=== PATIENT | male | born 1985 | race Two or more races ===

== ENCOUNTER 2025-01-03 12:13 | Emergency (ER) | payer OTHER ==
[~2025-01-03] VITALS: Ht 177.8 cm; Wt 111.1 kg
[2025-01-03 12:22] VITALS: BP 146/94; O2SAT 97
[2025-01-03] MEDS ORDERED: KETOROLAC TROMETHAMINE 30 MG VIAL IV ONE (12:45)
[2025-01-03 12:55] LABS: BASO % 0.2 % (0.1-1.2); EOS # 0.09 (0.04-0.54); EOS % 0.7 % (0.7-7.0); LYMPH # 1.62 (1.18-3.74); LYMPH % 13.3 % (19.3-53.1); MEAN PLATELET VOLUME 9.70 fl (9.4-12.4); MONO # 0.80 (0.24-0.82); MONO % 6.6 % (4.7-12.5); NEUT # 9.58 (1.56-6.13); NEUT % 78.8 % (34.0-71.1); RED CELL DISTRIBUTION WIDTH 13.0 % (11.6-14.4)
[2025-01-03 13:26] LABS: BUN CREA RATIO 11.0 (7.0-25.0); CREATININE SERUM 0.8 mg/dL (0.70-1.30); GFR 106.53; GLUCOSE FASTING 111.0 mg/dL (65-100); OSMOLALITY SERUM 282.0 MOSM/KG (275-295)
[2025-01-03 14:48] LABS: URINE APPEARANCE Clear; URINE BILIRRUBIN Negative (NEGATIVE); URINE BLOOD Negative; URINE COLOR Dark Yellow; URINE GLUCOSE Negative (NEGATIVE); URINE KETONE Trace (NEGATIVE); URINE LEUKOCYTE Negative; URINE NITRATE Negative; URINE PROTEIN Trace (NEGATIVE); URINE UROBILINOGEN 1.0 E.U./dl
[2025-01-03 14:52] LABS: URINE EPITHELIAL CELLS 18.4 uL (0.0-38.8); URINE RBC 10.5 uL (0.0-20.8); URINE WBC 3.6 uL (0.0-23.2)
[2025-01-03 15:02] LABS: URINE BACTERIA 3.5 uL (0.0-1933); URINE CAST 0.00 uL (0.0-1.40)
[2025-01-03] MEDS ORDERED: CIPROFLOXACIN IN 5 % DEXTROSE 400 MG/200 ML PIGGYBAG IV ONE (16:15)
[2025-01-03] MEDS ORDERED: CEFTRIAXONE SODIUM 1,000 MG VIAL IV ONE (16:15)
[2025-01-03] MEDS ORDERED: METRONIDAZOLE/SODIUM CHLORIDE 500 MG/100 ML PIGGYBACK IV ONE (16:15)
== END 2025-01-03 18:19 | disposition home or self-care (01) ==
LOC: ER 13:27
PROVIDERS: Emergency Medicine
DX: R50.9 Fever, unspecified (principal); R51.9 Headache, unspecified; Z20.822 Contact with and (suspected) exposure to COVID-19